=== PATIENT | female | born 1975 | race Two or more races ===

== ENCOUNTER 2018-05-31 16:28 | Emergency (ER) | payer OTHER ==
[2018-05-31] MEDS: ACETAMINOPHEN 325 MG TAB PO (17:21)
== END 2018-05-31 18:48 | disposition home or self-care (01) ==
LOC: FTE 16:28
DX: S99.911A Unspecified injury of right ankle, initial encounter (principal); E11.9 Type 2 diabetes mellitus without complications; I10 Essential (primary) hypertension; X58.XXXA Exposure to other specified factors, initial encounter; Y92.9 Unspecified place or not applicable
CPT/HCPCS: 73610; 73610-RT; 73630; 99283-25